=== PATIENT | male | born 1990 | race Two or more races ===

== ENCOUNTER 2023-03-10 20:27 | Emergency (ER) | payer SELFPAY ==
[~2023-03-10] VITALS: Ht 175.3 cm; Wt 79.2 kg
[~2023-03-10 20:27] MED LIST: DENIES HOME MEDS
[2023-03-10 21:40] VITALS: BP 112/70
[2023-03-10] MEDS ORDERED: HYDROcodone-ACET 5/325MG TAB PO ONE (21:45)
[2023-03-10] MEDS ORDERED: COR10OTS OT (21:51)
[2023-03-10] MEDS ORDERED: IBUP600T28 PO (21:51)
[2023-03-10] MEDS ORDERED: AUG875T PO (21:51)
== END 2023-03-11 03:17 | disposition home or self-care (01) ==
LOC: ER 20:27
DX: H66.93 Otitis media, unspecified, bilateral (principal); H61.21 Impacted cerumen, right ear; Z91.030 Bee allergy status
CPT/HCPCS: 69210

== ENCOUNTER 2023-05-22 14:56 | Emergency (ER) | payer SELFPAY ==
[~2023-05-22] VITALS: Ht 180.3 cm; Wt 70.0 kg
[~2023-05-22 14:56] MED LIST changes: +AUG875T PO; +COR10OTS OT; +IBUP1TAB5 PO
[2023-05-22] MEDS ORDERED: SODIUM CHLORIDE 0.9% 1,000 ML IV ONE ×2 (15:15→19:45)
[2023-05-22 15:39] LABS: Hematocrit 38.7 % (41.0-53.0); Hemoglobin 12.7 g/dL (13.5-17.5); Mean Corpuscular Hemoglobin 27.4 pg (28.0-32.0); Mean Corpuscular Hgb Conc. 32.7 g/dL (32.0-36.0); Mean Corpuscular Volume 83.9 fL (80.0-100.0); Red Blood Cells 4.62 10^6/uL (4.5-5.90); Red Cell Distribution Width 14.3 % (11.8-14.3); White Blood Cell 3.1 10^3/uL (4.4-10.8)
[2023-05-22 15:41] LABS: Basophils % (manual) 0 (0.0-2.0); Blast Cells 0; Eosinophils % (manual) 0 (0-7); Promyelocytes % 0; Reactive Lymphocytes 0
[2023-05-22 15:55] LABS: Albumin 3.1 g/dL (3.4-5.0); Anion Gap 4 (5-15); Blood Urea Nitrogen 6 mg/dL (7-18); Calcium 8.7 mg/dL (8.5-10.1); Carbon Dioxide 31 mmol/L (21-32); Chloride 102 mmol/L (98-107); Glucose 121 mg/dL (74-106); Potassium 3.4 mmol/L (3.5-5.1); Sodium 137 mmol/L (136-145)
[2023-05-22 16:00] LABS: Alanine Aminotransferase 27 U/L (16-61); Alkaline Phosphatase 94 U/L (45-117); Aspartate Aminotransferase 18 U/L (15-37); Bilirubin, Total 0.7 mg/dL (0.2-1.0); Blood Alcohol < 3.0 mg/dL (<10); GFR African American 155 mL/min; GFR Non-African American 128 mL/min; Total Protein 6.7 g/dL (6.4-8.2)
[2023-05-22 16:15] LABS: Band Neutrophils % (manual) 13; Lymphocytes % (manual) 32 (10.0-50.0); Metamyelocytes % 7; Monocytes % (manual) 9 (0-12); Myelocytes % 1
[2023-05-22 16:30] LABS: Urine Bacteria NONE SEEN /hpf (None Seen); Urine Blood Negative /uL (Negative); Urine Mucus MANY (None Seen); Urine Specific Gravity 1.018 (1.001-1.035); Urine WBC 3 /hpf (0 - 3)
[2023-05-22 16:50] LABS: Alcohol, Urine < 3.0 mg/dL (0-10); Barbiturate Scree,Urine NEGATIVE (NEGATIVE); Benzodiazephine Screen, Urine NEGATIVE (NEGATIVE); Cannabinoid Screen, Urine POSITIVE (NEGATIVE); Cocaine Screen, Urine POSITIVE (NEGATIVE)
[2023-05-22 17:11] LABS: Opiate Scree,Urine NEGATIVE (NEGATIVE); Phencyclidine Screen, Urine POSITIVE (NEGATIVE)
[2023-05-22 17:22] LABS: Amphetamine Screen, Urine POSITIVE (NEGATIVE)
[2023-05-22 21:20] VITALS: BP 98/63; PULSE 86; RESP 14; TEMP 98.1; O2SAT 97
== END 2023-05-22 21:31 | disposition home or self-care (01) ==
LOC: EDBD 14:56 → EDSEX 14:56 → ER 14:56
DX: T65.91XA Toxic effect of unspecified substance, accidental (unintentional), initial encounter (principal); F17.210 Nicotine dependence, cigarettes, uncomplicated; F12.90 Cannabis use, unspecified, uncomplicated; Z79.899 Other long term (current) drug therapy; Z91.030 Bee allergy status; Y92.89 Other specified places as the place of occurrence of the external cause
CPT/HCPCS: 36415; 80053; 80307; 80320; 81001; 85007; 85027; 93005; 96360; 96361; 99284; J7030

== ENCOUNTER 2025-09-14 15:27 | Emergency (ER) | payer MEDICAID ==
[~2025-09-14] VITALS: Ht 177.8 cm; Wt 74.3 kg
[2025-09-14 17:30] VITALS: BP 113/78; PULSE 71; RESP 18; TEMP 98.1; O2SAT 100
--- NOTE | 2025-09-14 18:48 | ED.PDOC ---
HPI Comments This is a 34 year-old male who presents to the ED with a chief complaint of laceration to the R hand, 5th pinky. Patient states he was cut by a sharp part of his fridge while moving it. Patient has no further complaints at this time and otherwise denies any LOC, fever, chills, drainage, or weakness. Chief Complaint: Laceration Time Seen by MD: 18:23 Primary Care Provider: UNKNOWN Reviewed Notes: Medications, Allergies Allergies: Coded Allergies: No Known Drug Allergy (Verified Allergy, Unknown, 09/14/25) Uncoded Allergies: BEES (Allergy, Unknown, 09/14/25) Home Meds Active Scripts Naproxen (NAPROSYN TABLET) 500 Mg Tb, 1 TAB PO BID, #10 TAB 1 Refill Prov:JAYSHREE FIELDS 09/14/25 Amoxicillin & Pot Clavulanate (AUGMENTIN TABLET) 875 Mg Tb, 875 MG PO BID for 7 Days, #14 TAB Prov:JAYSHREE FIELDS 09/14/25 Oolmkyxd-Xlvjifxhx-Im (Otic) (Cortisporin Otic Soln) [address], 1 DROP OT Q6HR for 10 Days, #1 DROP Prov:SHIELDSNORALDA Q LITHOGRAPH DESIGNER 03/10/23 Ibuprofen Micronized (Ibuprofen) 600 Mg Tab, 600 MG PO Q8HR, #14 TAB as needed for pain Prov:SHIELDSNORALDA Q LITHOGRAPH DESIGNER 03/10/23 Amoxicillin & Pot Clavulanate (AUGMENTIN TABLET) 875 Mg Tb, 875 MG PO BID for 10 Days, #20 TAB Prov:JOE SHIELDSA Q LITHOGRAPH DESIGNER 03/10/23 Reported Medications [Denies Home Meds] No Conflict Check 02/01/11 Information Source: Patient Mode of Arrival: Ambulatory Severity: Mild Severity of Laceration: Controlled Bleeding Complexity: Simple Prehospital treatment: None Laceration Location: Digit #5 Mechanism: Other (fridge) Laceration Length (cm): 2 Depth of Injury: Skin Capillary Refill: < 3 seconds Associated Signs and Symptoms: Other (laceration ) Past Medical History PAST MEDICAL HISTORY: Denies Surgical History: Denies all surgeries Social History Smoker: Cigarettes Alcohol: Denies ETOH Use Drugs: Marijuana Lives In: Home Physical Exam General Appearance: Moderate Distress HEENT: NOT DONE Neck: Non-Tender Respiratory: No Respiratory Distress Cardiovascular: NOT DONE Breast Exam: Deferred Gastrointestinal: NOT DONE Genitalia: Deferred Pelvic: None Rectal: Deferred Extremities: Other (4th and 5th laceration jagged approx 3 cm right at the web joint intact rom in all digits, no paresthesia, tingling or numb intact cap reflls and radial pulses) Neurologic: NOT DONE Cerebellar Function: NOT DONE Reflexes: NOT DONE Skin: Lacerations Lymphatic: NOT DONE Was a procedure done? Was a procedure done?: Yes Sedation Sedation?: No Laceration Repair : Location Digit 5 Length 2cm Anesthetic: Lidocaine Laceration Repair Prep: Saline Laceration Repair Wound Comple: epidermis/dermis repair Laceration Repair: Number of sutures, Simple, Non-adherent gauze Informed consent obtained: Yes Risks, benefits, and alternati: Yes Differential diagnosis Generic Laceration: Fracture, Tendon Injury, Laceration X-Ray, Labs, Meds, VS Vital Signs Date Time Temp Pulse Resp B/P (MAP) Pulse Ox O2 Delivery O2 Flow Rate FiO2 09/14/25 17:30 98.1 71 18 113/78 (90) 100 98.1 09/14/25 17:30 71 18 100 Room Air 09/14/25 15:29 97.7 78 18 126/93 100 97.7 7 cc lidocaine was applied to the wound patient fell pain and he decided to leave home even though he has a great risk for severe infection and poss loss of hand or even due to sepsis Time of 1ST Reevaluation: 19:20 Reevaluation 1ST: Unchanged Patient Education/Counseling: Diagnosis, Treatment Family Education/Counseling: No Family Present Departure 1 Departure Time of Disposition: 20:00 Impression: Primary Impression: Laceration of little finger without foreign body without damage to nail Qualified Codes: S61.216A - Laceration without foreign body of right little finger without damage to nail, initial encounter Disposition: LEFT AGAINST MEDICAL ADVICE Condition: Stable e-Prescriptions Naproxen (NAPROSYN TABLET) 500 Mg Tb 1 TAB PO BID, #10 TAB 1 Refill Prov: JAYSHREE FIELDS 09/14/25 Amoxicillin & Pot Clavulanate (AUGMENTIN TABLET) 875 Mg Tb 875 MG PO BID for 7 Days, #14 TAB Prov: JAYSHREE FIELDS 09/14/25 Discharged With: Self Critical Care Note Critical Care Time?: No Stability Stability form required: No Heart Score Heart Score: Heart Score Response (Comments) Value History N/A 0 EKG N/A 0 Age N/A 0 Risk Factors N/A 0 Troponin N/A 0 Total 0 I personally scribed for ER ([email or web address]) on 09/14/25 at 18:48. Electronically submitted by Camila Julian ([facility]). ER Sep 14, 2025 18:48 JAYSHREE FIELDS Sep 15, 2025 05:26
[2025-09-14] MEDS ORDERED: AUG875T PO (18:53)
[2025-09-14] MEDS ORDERED: NAP500T PO (18:54)
== END 2025-09-14 19:29 | disposition left against medical advice (07) ==
LOC: ER 15:27
DX: S61.216A Laceration without foreign body of right little finger without damage to nail, initial encounter (principal); F17.210 Nicotine dependence, cigarettes, uncomplicated; Z91.030 Bee allergy status; X58.XXXA Exposure to other specified factors, initial encounter; Y93.89 Activity, other specified; Y92.89 Other specified places as the place of occurrence of the external cause; Y99.8 Other external cause status
CPT/HCPCS: 12001; 99283; A4649